=== PATIENT | female | born 1945 ===

== ENCOUNTER 2024-09-10 12:15 | Inpatient (IN) | payer OTHER ==
[~2024-09-10] VITALS: Ht 160 cm; Wt 68.9 kg
[2024-09-10] MEDS ORDERED: ELIQUIS2.5 MG PO (13:29)
[2024-09-10] MEDS ORDERED: MILLIPRED5 MG PO (13:30)
[2024-09-10] MEDS ORDERED: ROSUVASTATIN CAL5 MG PO (13:30)
[2024-09-15] MEDS ORDERED: FUROsemide 20 MG/2 ML VIAL IV SCH (12:15)
[2024-09-15] MEDS ORDERED: RINGERS SOLUTION,LACTATED 1,000 ML IV SCH (12:15)
[2024-09-15 14:29] VITALS: BP 156/85; O2SAT 94
[2024-09-15 16:00] VITALS: BP 130/80; O2SAT 98
[2024-09-15] MEDS ORDERED: ATORVASTATIN CALCIUM 10 MG TABLET PO SCH (21:00)
[2024-09-15] MEDS ORDERED: FAMOTIDINE/PF 20 MG/2 ML VIAL IV SCH (21:00)
[2024-09-16 01:09] VITALS: BP 105/58; O2SAT 100
[2024-09-16] MEDS ORDERED: PREDNISONE 5 MG TABLET PO SCH (09:00)
[2024-09-16 09:32] VITALS: BP 160/92; O2SAT 98
[2024-09-16 16:00] VITALS: BP 160/90; O2SAT 98
[2024-09-17 00:51] VITALS: BP 142/80; O2SAT 97
[2024-09-17] MEDS ORDERED: HYDROCORTISONE SODIUM SUCC/PF 100 MG VIAL IV ONE (05:45)
[2024-09-17] MEDS ORDERED: HYDROCORTISONE SODIUM SUCC/PF 100 MG VIAL ONE (06:30)
[2024-09-17 08:26] VITALS: BP 129/72; O2SAT 95
[2024-09-17 08:33] LABS: BASO % 0.7 % (0.1-1.2); EOS # 0.17 (0.04-0.54); EOS % 3.8 % (0.7-7.0); HEMATOCRIT 27.8 % (34.1-44.9); LYMPH # 1.82 (1.18-3.74); MEAN CORPUSCULAR HEMOGLOBIN 27.6 pg (25.6-32.2); MONO # 0.48 (0.24-0.82); MONO % 10.8 % (4.7-12.5); NEUT # 1.93 (1.56-6.13); NEUT % 43.5 % (34.0-71.1); PLATELET COUNT 257 K/uL (163-369); RED BLOOD COUNT 3.12 M/uL (3.93-5.22); RED CELL DISTRIBUTION WIDTH 22.5 % (11.6-14.4)
[2024-09-17 08:42] LABS: COVID-19 AG NEGATIVE (NEGATIVE)
[2024-09-17 08:52] LABS: HEMOGLOBIN 8.6 g/dL (11.2-15.7)
[2024-09-17] MEDS ORDERED: ENOXAPARIN SODIUM 40 MG/0.4 ML SYRINGE SUBCUTANEO STA (11:49)
[2024-09-17] MEDS ORDERED: DIPHENHYDRAMINE HCL 50 MG/ML VIAL 1ML IV SCH (13:45)
[2024-09-17] MEDS ORDERED: METHYLPREDNISOLONE SOD SUCC 40 MG VIAL IV SCH (13:45)
[2024-09-17 17:17] VITALS: BP 154/96; O2SAT 92
[2024-09-17] MEDS ORDERED: ENALAPRILAT DIHYDRATE 1.25 MG/ML VIAL IV STA (21:59)
[2024-09-17] MEDS ORDERED: ENALAPRILAT DIHYDRATE 1.25 MG/ML VIAL IV PRN (22:00)
[2024-09-18 00:39] VITALS: BP 148/76; O2SAT 94
[2024-09-18 08:00] VITALS: BP 132/76; O2SAT 99
[2024-09-18] MEDS ORDERED: hydrALAZINE HCL 20 MG VIAL IV PRN (12:30)
[2024-09-18] MEDS ORDERED: POLYETHYLENE GLYCOL 3350 238 GM POWDER PO NR (14:00)
[2024-09-18 16:00] VITALS: BP 156/85; O2SAT 97
[2024-09-18 21:19] LABS: HEMATOCRIT 40.7 % (34.1-44.9); HEMOGLOBIN 13.2 g/dL (11.2-15.7); LYMPH # 0.76 (1.18-3.74); MEAN CORPUSCULAR HEMOGLOBIN 28.5 pg (25.6-32.2); MONO # 0.16 (0.24-0.82); MONO % 1.7 % (4.7-12.5); NEUT # 8.53 (1.56-6.13); PLATELET COUNT 305 K/uL (163-369); RED BLOOD COUNT 4.63 M/uL (3.93-5.22); RED CELL DISTRIBUTION WIDTH 21.2 % (11.6-14.4)
[2024-09-19 01:22] VITALS: BP 145/78; O2SAT 100
[2024-09-19] MEDS ORDERED: HYDROCORTISONE SODIUM SUCC/PF 100 MG VIAL IV NR (05:00)
[2024-09-19 08:00] VITALS: BP 158/80; O2SAT 96
[2024-09-19 16:55] VITALS: BP 154/85; O2SAT 98
[2024-09-19] MEDS ORDERED: BUPIVACAINE HCL/MPF 0.5% 30ML VIAL ONE (17:25)
[2024-09-19] MEDS ORDERED: METRONIDAZOLE/SODIUM CHLORIDE 500 MG/100 ML PIGGYBACK IV ONE ×2 (17:26→18:45)
[2024-09-19] MEDS ORDERED: LIDOCAINE HCL 1%/EPINEPHRINE 20ML VIAL IJ ONE ×2 (17:26→18:45)
[2024-09-19] MEDS ORDERED: CEFTRIAXONE SODIUM 2,000 MG VIAL ONE (17:26)
[2024-09-19] MEDS ORDERED: HYDROCORTISONE SODIUM SUCC/PF 100 MG VIAL IV SCH (18:00)
[2024-09-19] MEDS ORDERED: OxyCODONE HCL 5 MG TABLET (ROXICODONE) PO PRN (18:15)
[2024-09-19] MEDS ORDERED: DEXTROSE 50 % IN WATER 0.5 G/ML VIAL IV PRN (18:15)
[2024-09-19] MEDS ORDERED: 0.9 % SODIUM CHLORIDE 1,000 ML IV SCH (18:15)
[2024-09-19] MEDS ORDERED: ONDANSETRON HCL 2 MG/ML VIAL IV PRN (18:15)
[2024-09-19] MEDS ORDERED: MORPHINE SULFATE 4 MG/ML CARTRIDGE IV PRN (18:15)
[2024-09-19] MEDS ORDERED: CEFTRIAXONE SODIUM 2,000 MG VIAL IV ONE (18:45)
[2024-09-19] MEDS ORDERED: BUPIVACAINE HCL 30 ML VIAL IJ ONE (18:45)
[2024-09-19] MEDS ORDERED: ACETAMINOPHEN 500 MG GEL..CAP PO SCH (20:00)
[2024-09-19] MEDS ORDERED: SUGAMMADEX SODIUM 200 MG/2 ML VIAL IV ONE (20:04)
[2024-09-19] MEDS ORDERED: FAMOTIDINE/PF 20 MG/2 ML VIAL IV PUSH SCH (21:00)
[2024-09-19] MEDS ORDERED: FAMOTIDINE/PF 20 MG/2 ML VIAL ONE (21:17)
[2024-09-19] MEDS ORDERED: MORPHINE SULFATE 4 MG/ML VIAL IV ONE ×2 (21:20→21:50)
[2024-09-19 23:17] LABS: BASO % 0.2 % (0.1-1.2); EOS # 0.03 (0.04-0.54); EOS % 0.3 % (0.7-7.0); HEMATOCRIT 42.8 % (34.1-44.9); HEMOGLOBIN 13.4 g/dL (11.2-15.7); LYMPH # 2.19 (1.18-3.74); LYMPH % 18.8 % (19.3-53.1); MONO # 0.64 (0.24-0.82); MONO % 5.5 % (4.7-12.5); NEUT # 8.75 (1.56-6.13); NEUT % 74.9 % (34.0-71.1); PLATELET COUNT 284 K/uL (163-369); RED BLOOD COUNT 4.62 M/uL (3.93-5.22); RED CELL DISTRIBUTION WIDTH 21.2 % (11.6-14.4)
[2024-09-19 23:31] LABS: ALBUMIN 2.9 gm/dL (3.4-5.0); CALCIUM 8.5 mg/dL (8.5-10.1); CREATININE SERUM 0.92 mg/dL (0.55-1.02); GFR 58.89; MAGNESIUM 1.8 mg/dL (1.8-2.4); PHOSPHOROUS 4.2 mg/dL (2.5-4.9); POTASSIUM 4.26 mEq/L (3.5-5.1)
[2024-09-20] MEDS ORDERED: HYDROCORTISONE SODIUM SUCC/PF 100 MG VIAL IV SCH
[2024-09-20] MEDS ORDERED: ACETAMINOPHEN 500 MG GEL..CAP PO ONE (00:25)
[2024-09-20] MEDS ORDERED: METRONIDAZOLE/SODIUM CHLORIDE 500 MG/100 ML PIGGYBACK IV ONE (00:25)
[2024-09-20] MEDS ORDERED: GABAPENTIN 300 MG CAPSULE PO ONE (00:25)
[2024-09-20] MEDS ORDERED: GABAPENTIN 300 MG CAPSULE PO SCH (01:00)
[2024-09-20] MEDS ORDERED: METRONIDAZOLE/SODIUM CHLORIDE 500 MG/100 ML PIGGYBACK IV SCH (01:00)
[2024-09-20 02:10] VITALS: BP 134/82; O2SAT 100
[2024-09-20 07:59] LABS: BASO % 0.1 % (0.1-1.2); HEMATOCRIT 38.8 % (34.1-44.9); HEMOGLOBIN 12.1 g/dL (11.2-15.7); LYMPH # 0.51 (1.18-3.74); LYMPH % 4.4 % (19.3-53.1); MEAN CORPUSCULAR HEMOGLOBIN 28.5 pg (25.6-32.2); MONO % 3.4 % (4.7-12.5); NEUT # 10.63 (1.56-6.13); NEUT % 91.7 % (34.0-71.1); PLATELET COUNT 218 K/uL (163-369); RED BLOOD COUNT 4.24 M/uL (3.93-5.22); RED CELL DISTRIBUTION WIDTH 20.8 % (11.6-14.4)
[2024-09-20 08:39] LABS: ALBUMIN 2.6 gm/dL (3.4-5.0); CREATININE SERUM 0.63 mg/dL (0.55-1.02); GFR 91.16; MAGNESIUM 1.7 mg/dL (1.8-2.4); PHOSPHOROUS 3.9 mg/dL (2.5-4.9); POTASSIUM 3.77 mEq/L (3.5-5.1)
[2024-09-20] MEDS ORDERED: HYOSCYAMINE SULFATE 0.125 MG TAB.SUBL SL SCH (09:00)
[2024-09-20] MEDS ORDERED: HYDROCORTISONE SODIUM SUCC/PF 100 MG VIAL ONE (09:03)
[2024-09-20 09:21] VITALS: BP 127/66; O2SAT 93
[2024-09-20] MEDS ORDERED: MAGNESIUM SULFATE IN WATER 50 ML IV NR (09:30)
[2024-09-20] MEDS ORDERED: HYDROCORTISONE SODIUM SUCC/PF 100 MG VIAL IV ONE (10:15)
[2024-09-20] MEDS ORDERED: HYDROCORTISONE SODIUM SUCC/PF 50 MG/ML ML IV SCH ×2 (12:00→17:00)
[2024-09-20 16:29] VITALS: BP 133/76; O2SAT 95
[2024-09-20] MEDS ORDERED: ENOXAPARIN SODIUM 40 MG/0.4 ML SYRINGE SUBCUTANEO SCH (17:00)
[2024-09-20] MEDS ORDERED: GABAPENTIN 100 MG CAPSULE PO SCH (17:00)
[2024-09-21 01:11] VITALS: BP 133/64; BP 153/87; O2SAT 94; O2SAT 96
[2024-09-21 07:19] LABS: EOS # 0.02 (0.04-0.54); EOS % 0.3 % (0.7-7.0); HEMATOCRIT 37.7 % (34.1-44.9); HEMOGLOBIN 12.2 g/dL (11.2-15.7); LYMPH # 1.57 (1.18-3.74); LYMPH % 19.8 % (19.3-53.1); MEAN CORPUSCULAR HEMOGLOBIN 29.5 pg (25.6-32.2); MONO # 0.65 (0.24-0.82); MONO % 8.2 % (4.7-12.5); NEUT # 5.66 (1.56-6.13); NEUT % 71.4 % (34.0-71.1); PLATELET COUNT 211 K/uL (163-369); RED BLOOD COUNT 4.14 M/uL (3.93-5.22); RED CELL DISTRIBUTION WIDTH 20.7 % (11.6-14.4)
[2024-09-21 08:00] VITALS: BP 160/68; O2SAT 95
[2024-09-21 08:10] LABS: CALCIUM 8.1 mg/dL (8.5-10.1); CREATININE SERUM 0.69 mg/dL (0.55-1.02); GFR 82.07; MAGNESIUM 2.2 mg/dL (1.8-2.4); PHOSPHOROUS 2.4 mg/dL (2.5-4.9); POTASSIUM 4.14 mEq/L (3.5-5.1)
[2024-09-21] MEDS ORDERED: ENOXAPARIN SODIUM 40 MG/0.4 ML SYRINGE SUBCUTANEO SCH (09:00)
[2024-09-21] MEDS ORDERED: HYDROCORTISONE SODIUM SUCC/PF 100 MG VIAL IV STA (10:18)
[2024-09-21] MEDS ORDERED: POTASSIUM PHOS,M-BASIC-D-BASIC 3 MM/ML VIAL IV NR (12:00)
[2024-09-21 16:58] VITALS: BP 116/70; O2SAT 95
[2024-09-21] MEDS ORDERED: MELATONIN 5 MG TABLET PO SCH (21:00)
[2024-09-22 02:08] VITALS: BP 125/80; O2SAT 100
[2024-09-22 08:00] VITALS: BP 154/86; O2SAT 96
[2024-09-22] MEDS ORDERED: HYDROCORTISONE SODIUM SUCC/PF 100 MG VIAL IV SCH (09:00)
[2024-09-22 17:24] VITALS: BP 136/85; O2SAT 95
[2024-09-22] MEDS ORDERED: FAMOtidine 20 MG TABLET PO SCH (21:00)
[2024-09-23 02:01] VITALS: BP 141/78; O2SAT 100
[2024-09-23 08:00] VITALS: BP 128/68; O2SAT 97
[2024-09-23 16:00] VITALS: BP 147/81; O2SAT 98
[2024-09-24 01:51] VITALS: BP 95/67; O2SAT 100
[2024-09-24 07:12] LABS: BASO % 0.5 % (0.1-1.2); EOS # 0.24 (0.04-0.54); EOS % 4.2 % (0.7-7.0); HEMATOCRIT 36.9 % (34.1-44.9); HEMOGLOBIN 11.6 g/dL (11.2-15.7); LYMPH # 1.93 (1.18-3.74); MEAN CORPUSCULAR HEMOGLOBIN 29.1 pg (25.6-32.2); MONO # 0.63 (0.24-0.82); MONO % 11.1 % (4.7-12.5); NEUT # 2.83 (1.56-6.13); PLATELET COUNT 204 K/uL (163-369); RED BLOOD COUNT 3.99 M/uL (3.93-5.22); RED CELL DISTRIBUTION WIDTH 20.3 % (11.6-14.4)
[2024-09-24 08:00] VITALS: BP 170/86; O2SAT 96
[2024-09-24] MEDS ORDERED: AMLODIPINE BESYLATE 2.5 MG TABLET PO NR (11:00)
[2024-09-24] MEDS ORDERED: TRAM1TAB98 PO (11:46)
[2024-09-25] MEDS ORDERED: AMLODIPINE BESYLATE 2.5 MG TABLET PO SCH (09:00)
== END 2024-09-24 17:51 | disposition home or self-care (01) | DRG 330 ==
LOC: SURH 09-15 08:40
PROVIDERS: Internal Medicine Geriatric Medicine; Surgery; ADMIT Surgery; ATTEND Surgery
PROC: 30233N1 Transfusion of Nonautologous Red Blood Cells into Peripheral Vein, Percutaneous Approach (ICD-10-PCS; 2024-09-17)
PROC: 07BB4ZZ Excision of Mesenteric Lymphatic, Percutaneous Endoscopic Approach (ICD-10-PCS; 2024-09-19)
PROC: 0DTF4ZZ Resection of Right Large Intestine, Percutaneous Endoscopic Approach (ICD-10-PCS; principal; 2024-09-19 19:00)
DX: D37.4 Neoplasm of uncertain behavior of colon (principal); K92.1 Melena; D64.9 Anemia, unspecified; I48.91 Unspecified atrial fibrillation; R59.0 Localized enlarged lymph nodes